=== PATIENT | female | born 1995 | race Caucasian/White ===

== ENCOUNTER → 2016-10-26 | Outpatient (CLI) | payer OTHER ==
[~2016-10-26] MED LIST: BUPIVACAINE/EPI 0.25% 30 ML SDV ONE; BUPIVACAINE/EPI 0.5% 30 ML SDV ONE; GADOBUTROL 10 ML VIAL IVP ONE; LIDO/EPI 1% **for epidural** 30 ML SDV ONE
--- NOTE | 2016-10-26 14:35 | MR ---
MRI of the Brain (Without and With Contrast) at 1158 hours Clinical Indication: H53.9, visual disturbance, G43.909, migraine. Comparison: None. Technique: T1-weighted images were acquired axially and sagittally from the foramen magnum to the ve rtex. Axial fast inversion recovery, fast T2-weighted, and diffusion-weighted axial images were obta ined without contrast. Postcontrast axial and coronal images with the uneventful intravenous administ ration of 5 mL Gadavist contrast. 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 There is slight mass effect on the tectum on the s agittal series. Otherwise, the ventricles, cisterns, and sulci are normal without atrophy, hydrocephalus, midline rosa ft, herniation, or epidural/subdural hematomas. No intracranial hemorrhage or masses. Diffusion-weigh itzel images demonstrate no acute infarct. Cerebellar tonsils are in normal position. Pituitary gland i s normal in size. Normal signal flow-void in the superior sagittal sinus, basilar artery, and bilater al internal carotid arteries indicating patency. Postcontrast images demonstrate no enhancing lesions or abnormal leptomeningeal enhancement. A 2 cm mucous retention cyst inferior aspect right maxillary sinus with mild peripheral mucosal thickening inferior aspects of bilateral maxillary sinuses. Orbit s are unremarkable. Globes appear intact. No intraconal or extraconal masses or inflammatory changes. Impression: 1. 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 Recommend neurosurgery consult and follow-up MRI as clinically indicated. 2. Mild sinusitis. 3. No acute infarct, acute hemorrhage, hydrocephalus or herniation. 4. No additional enhancing masses.
== END ==
LOC: FIMAGING 11:32
PROVIDERS: ATTEND Internal Medicine
DX: G93.9 Disorder of brain, unspecified (principal); G43.909 Migraine, unspecified, not intractable, without status migrainosus; H53.9 Unspecified visual disturbance
CPT/HCPCS: A9585; J0171